=== PATIENT | female | born 1990 | race Caucasian/White ===

== ENCOUNTER → 2018-01-23 09:27 | Outpatient (CLI) | payer OTHER, MEDICAID, SELFPAY ==
[2018-01-23 09:12] VITALS: TEMP 36.6
[2018-01-23 14:43] LABS: Urine N gonorrhoeae NOT DETECTED
[2018-01-23 15:05] LABS: Urine Chlamydia NOT DETECTED
== END ==
PROVIDERS: PCP Physician Assistant; Visit Provider Physician Assistant
DX: R10.2 Pelvic and perineal pain (principal); N92.3 Ovulation bleeding
CPT/HCPCS: 87086; 87491; 87591

== ENCOUNTER → 2018-01-31 10:19 | Outpatient (CLI) | payer OTHER, MEDICAID, SELFPAY ==
[2018-01-23 09:12] VITALS: TEMP 36.6
--- NOTE | 2018-01-31 10:20 | DI.US.S_ITS ---
PROCEDURE: US PELVIC COMPLETE INDICATIONS: PAIN WITH INTERCOURSE; ABNORMAL BLEEDING TECHNIQUE: Real-time scanning was performed of the pelvic organs, with image documentation. Additional endovaginal scanning was necessary due to incomplete visualization of the adnexal and endometrial structures by transabdominal scanning. COMPARISON: None. FINDINGS: Transabdominal scanning: Limited scanning through the kidneys shows no hydronephrosis. No pathologic free abdominal or pelvic fluid. Endovaginal scanning: Uterus: Uterus is normal in size at 8.6 x 4.4 x 5.5 cm. The endometrium measures 3.2 mm in combined thickness. Ovaries: Ovaries normal in size measuring 2.5 x 1.9 x 1.3 cm on the right and 2.7 x 2.4 x 3.4 cm on the left. Simple cyst involves the left ovary measuring 1.9 x 2.2 x 2.3 cm. IMPRESSION: Simple cyst involving the left ovary measuring roughly 2.3 cm. Dictated by: Arun HAYS Interpreted: Dwight Loja MD on 01/31/2018 at 11:56 Approved by: Dwight Loja M.D. on 01/31/2018 at 14:16
== END ==
PROVIDERS: PCP Physician Assistant; Visit Provider Physician Assistant
DX: N93.9 Abnormal uterine and vaginal bleeding, unspecified (principal); N94.10 Unspecified dyspareunia
CPT/HCPCS: 76830; 76856